=== PATIENT | male | born 1960 | race Caucasian/White ===

== ENCOUNTER 2024-05-22 08:50 | Outpatient (REF) | payer MEDICARE, SELFPAY | END 2024-05-22 08:51 | disposition home or self-care (01) | LOC: HO.HOSX 08:50 | PROVIDERS: Visit Provider Physician Assistant | DX: Z13.89 Encounter for screening for other disorder (principal) ==

== ENCOUNTER 2024-11-28 09:28 | Outpatient (AMB) | payer MEDICARE, SELFPAY ==
--- NOTE | 2024-11-28 07:32 | A.OFFVIS_ITS ---
Vital Signs 11/28/24 09:35 Height 5 ft 11 in Weight 216 lb 0.848 oz BMI 30.1 BP 148/70 H Blood Pressure Location Rt brachial Position Sitting Pulse 77 Pulse Source Pulse Oximeter Pulse Oximetry (%) 96 Oxygen Delivery Method Room Air Intake Visit Reasons: T2DM Intake Note: NEW Patient presents today to establish treatment for Type 2 Diabetes Mellitus: Last Diabetic eye exam was on: DUE Last Podiatry exam was on: Patient does not see a Senior Financial Most recent HbA1c: >14.0% from 8.9% 07/27/2024 UR Ketone Dip: Negative Random Glucose- 476 mg/dL, Today UR Ketone Dip: Negative Tools Programmer Required: No Accompanied by: Self / Same As Patient Allergies tamsulosin Adverse Reaction (Mild, Verified 11/28/24 09:36) Unknown HPI Comments Details: [age] YO male who is seen in consultation for T2DM at the request of PCP. Hemoglobin A1c 11/28/2024 greater than 14 % 07/28/24 8.9%. He was recently treated in the emergency room for extensive oropharyngeal candidiasis. Today in the office he is negative for ketones his glucose is 467. He declines an insulin shot in the office. He declines 911 transport to the hospital. He is with a friend who will drive him to the hospital and he is schedule follow up with me in 1 week. He reports his knees buckled out from underneath him yesterday when he felt weak. Diagnosed approx 2018 Today he states he is not taking any of his medication. l Was initially started on treatment with: metformin had dizziness not certain of what meds he has been on in the past. He stopped all meds and dizziness went away. Current regimen: He is not taking any of his medications with the exception of insulin. Lantus 35 units reports taking daily. Reports low sugars x 1 to 60 in the distant past Family history of T2DM in nephew sibling Denies retinopathy. Has eyes checked yearly, last eye exam few years ago seen by Raul Fernandez and Chetna in the past. Has neuropathy, symptoms: Has sharp pains like needles in the feet. last foot exam today, sees podiatry. Has nephropathy, on jaycee-inhibitor.EGFR 65 07/2024 Has HLD, on statin. Last LDL 137 as measured on 07/2024. Denies CAD, pvd or cva Has prev cholecystectomy Diet: not balanced [facility] Medical History Type 2 diabetes mellitus Surgical History Hx of lumbar discectomy Family History Father No problems noted. Mother No problems noted. Social History Alcohol intake: current Alcohol intake frequency: does not drink Patient Tobacco Use Status: Current everyday Tobacco user Physical Exam Vital Signs: Last Vital Signs Pulse 77 11/28/24 09:35 BP 148/70 H 11/28/24 09:35 Pulse Ox 96 11/28/24 09:35 Oxygen Delivery Method Room Air 11/28/24 09:35 BMI result Body Mass Index 30.1 Absence of Cushingoid features. Absence of acromegalic features. Neck exam reveals nl size thyroid about 15 gms. No thyroid nodules palpable. No carotid bruits present. Lungs CTA. Heart S1 S2, Reg R/R. No M/R/ G. Skin exam reveals absence of vitiligo or acanthosis nigricans. Abdominal exam reveals Soft NT/ND with NA BS. No organomegaly present. Const Other: Absence of Cushingoid features. Absence of acromegalic features. Neck exam reveals nl size thyroid about 15 gms. No thyroid nodules palpable. No carotid bruits present. Lungs CTA. Heart S1 S2, Reg R/R. No M/R G. Skin exam reveals absence of vitiligo or acanthosis nigricans. No edema Visual exam of foot performed. No ulcerations or open lesions. No inter digit maceration or fissuring. No onychomycosis, no callouses. Sensation intact to monofilament exam. Vibratory sensation is normal with 128 Hz tuning fork. Neck Other: . Extrem Other: Visual exam of foot performed. No ulcerations or open lesions. No onchomycosis, no callouses.Pulses 2 + distally Sensation intact to monofilament exam. Vibratory sensation sensed is intact with 128 Hz tuning fork Results AMB Hemoglobin A1c AMB Hemoglobin A1c > 14.0 % Last Edit by JULISSA Mayes on 11/28/24 09 :52 UR Ketone Dip UR Ketone Dip Negative Last Edit by JULISSA Mayes on 11/28/24 09:53 Results Reviewed Results Reviewed: Laboratory Last Values Glucose (Clinic) 476 mg/dL (60-115) H* 11/28/24 09:42 Hgb A1c (Clinic) > 14.0 % (4.0-6.0) H 11/28/24 09:49 Ur Ketones (Stick) Negative 11/28/24 09:49 Assessment & Plan Assessment & Plan (1) Type 2 diabetes mellitus: Code(s): E11.9 - Type 2 diabetes mellitus without complications Category: Medical Plan: 64-year-old type 2 diabetic with stage II nephropathy EGFR 65 with a 2 pack per day smoking history and an A1c 11/28/2024 over 14 %. Noncompliance with medication. He needs to be started on basal bolus insulin but given the marked elevation in his glucose he was advised to go to the emergency room and declined transportation by 911. I advised him it was against medical advice not to go to the emergency room and then he clearly needs multiple daily injections to get his sugars under control. We had a conversation patient regarding the risk of diabetic complications related to uncontrolled sugars. He has agreed to follow up with me in 1 week. The patient had an opportunity to ask questions regarding treatment plan. The patient expressed understanding and agreement with the above treatment plan. The patient is aware they should contact our office by phone for worsening glucose readings or for any low blood sugars which may warrant a change in diabetes medication. Compliance is encouraged with medications and any followup testing/consults which may have been ordered. Orders: Orders AMB Ketone Urine Dipstick Today E11.9 - Type 2 diabetes mellitus without complications AMB Hemoglobin A1c Today E11.9 - Type 2 diabetes mellitus without complications Patient Instructions: The patient was counseled to achieve a target A1C of 7% (154 avg). Fasting blood sugars should be 90-130 in the morning and less than 180 two hours after meals. Reviewed the relationship between poor diabetic control and the development of complications. Take 15 carb carbohydrate grams to treat a low sugar (3-4 glucose tablets, half a glass of juice or 15 carbohydrate grams of soft candy such as gummie snacks). Recheck your sugar in 15 minutes and re-treat again with 15 carbohydrate grams if low or still with symptoms. Do not drive a car or operate machinery if you do not know what your blood sugar is, if it is low or in excess of 300. Check your feet daily looking for any signs of infection, drainage, redness, ulceration and seek medical attention if this occurs. Break in shoes gradually and do not wear open-toed shoes or walk stocking footed or barefooted. Sick day management reviewed. Coding Level of Care Code New Pt Level 4 (84263) Diagnoses Type 2 diabetes mellitus E11.9 Time Spent (min) 30 Comment Time spent reviewing labs/provider notes, face to face, chart doc
[2024-11-28 09:35] VITALS: BP 148/70; PULSE 77; O2SAT 96; BMI 30.1
[2024-11-28 09:48] LABS: Glucose, Whole Blood 476 mg/dL (60-115)
--- OUTSIDE RECORDS SUMMARY | 2024-11-28 10:42 | XMS_ITS | Clinical Summary ---
Author Organization [facility] Address [address] [place] [address] Care Team Providers Care Sql Application Developer Name Role Phone Vasu Diaz MD Primary Care Provider [phone] Surgical History Surgery Date Site/Laterality Comments CHOLECYSTECTOMY PROCEDURE: ME LAPAROSCOPY SURG CHOLECYSTECTOMY Family History Medical History Relation Name Comments Brain cancer Father Relation Name Status Comments Father Mother Alive Social History Tobacco Use Types Packs/Day Years Used Date Smoking Tobacco: Every Day Smokeless Tobacco: Never Sex and Gender Information Value Date Recorded Sex Assigned at Not on file Legal Sex Male 4:01 PM EST Gender Identity Not on file Sexual Orientation Not on file Obstetrics History Plan of Treatment Health Maintenance Due Date Last Done Comments DTaP,Tdap,and Td Vaccines (1 - Tdap) 1977 Pneumococcal Vaccine: 50+ Ye ars (1 of 2 - PCV) 1977 Zoster Vaccines (1 of 2) 2008 Abdominal Aortic Aneurysm (A AA) Screen 08/25/2022 Cholesterol Screening (Lipid Panel) 08/25/2022 Colorectal Cancer Screening: Colonoscopy 08/25/2022 Depression Screening 08/25/2022 Hepatitis C Screening 08/25/2022 Social Influencers of Health Screening 08/25/2022 Falls Risk Assessment 2023 COVID-19 Vaccine ( - 2023-2 5 season) 2024 Influenza Vaccine (#1) 2024 RSV Immunization Patients 60 + Years Old (1 - 1-dose 75+ series) 2033 HIB Vaccines Aged Out No longer eligi ble based on patient's age to complete this topic HPV Vaccines Aged Out No longer eligi ble based on patient's age to complete this topic Hepatitis A Vaccines Aged Out No long er eligible based on patient's age to complete this topic Hepatitis B Vaccines Aged Out No long er eligible based on patient's age to complete this topic IPV Vaccines Aged Out No longer eligi ble based on patient's age to complete this topic MMR Vaccines Aged Out No longer eligi ble based on patient's age to complete this topic Meningococcal ACWY Vaccine Aged Out N o longer eligible based on patient's age to complete this topic Meningococcal B Vacine Aged Out No lo nger eligible based on patient's age to complete this topic RSV Immunization Patients Un michel 20 months Aged Out No longer eligible b ased on patient's age to complete this topic Varicella Vaccines Aged Out No longer eligible based on patient's age to complete this topic Care Teams Sql Application Developer Relationship Specialty Start Date End Date Vasu Diaz MD [address] [place] [address] PCP - General Internal Medicine 09/08/18
== END 2024-11-28 10:06 | disposition home or self-care (01) ==
PROVIDERS: PCP Internal Medicine; Visit Provider Nurse Practitioner Adult Health
DX: E11.9 Type 2 diabetes mellitus without complications (principal)
CPT/HCPCS: 99204

== ENCOUNTER → 2024-11-28 09:28 | Outpatient (BNVA) | payer MEDICARE, SELFPAY | PROVIDERS: PCP Internal Medicine; Visit Provider Nurse Practitioner Adult Health | DX: E11.9 Type 2 diabetes mellitus without complications (principal) | CPT/HCPCS: 81002; 82947; 83036; 99202 ==

== ENCOUNTER 2024-12-05 09:19 | Outpatient (AMB) | payer MEDICARE, SELFPAY ==
--- NOTE | 2024-12-04 16:22 | A.OFFVIS_ITS ---
Vital Signs 12/05/24 09:30 Height 5 ft 11 in Weight 222 lb 10.67 oz BMI 31.1 BP 120/60 Blood Pressure Location Rt brachial Position Sitting Pulse 70 Pulse Source Pulse Oximeter Pulse Oximetry (%) 96 Oxygen Delivery Method Room Air Intake Visit Reasons: T2DM Intake Note: Patient presents today for a follow-up on Type 2 Diabetes Mellitus: Last Diabetic eye exam was on: DUE Last Podiatry exam was on: Patient does not see a Consulting Manager Most recent HbA1c: >14.0%, 11/28/2024 Random Glucose- 317 mg/dL, Today Manufacturer Agent Required: No Accompanied by: Self / Same As Patient Allergies tamsulosin Adverse Reaction (Mild, Verified 12/05/24 09:31) Unknown Medication List - Last Reconciled 12/05/24 by Zhanna Burger NP aspirin 81 mg PO DAILY atorvastatin 10 mg PO BEDTIME blood-glucose sensor (FreeStyle Eladio 3 Sensor device) As directed fluconazole 100 mg PO DAILY insulin glargine (Lantus Solostar U-100 Insulin) 40 units subcut DAILY lisinopril 10 mg PO QAM pen needle, diabetic (BD Ultra-Fine Short Pen Needle) As directed pioglitazone 30 mg PO DAILY HPI Comments Details: [age] YO male who is seen in f/u for T2D. He was seen as an initial consult on 11/28/2024 and referred to emergency room for a glucose of 476 because he refused treatment with an insulin injection. He had stopped all of his medications prior to his clinic visit and had been complaining of dizziness. A1c 11/28/2024 greater than 14 % 07/28/24 8.9%. He was hospitalized for several days and bolus insulin was added to his regime. He was given a sliding scale to follow and has picked up the insulin pens but has not started using bolus insulin. He has been taking Lantus 40 units daily. He was recently treated in the emergency room for extensive oropharyngeal candidiasis. . Diagnosed approx 2017 Was initially started on treatment with: metformin reports that this caused dizziness Current regimen: Lantus 40 units Humalog tid before meals 100-149 10 unit 150-199 13 units 200- 249 16 units 250-299 19 units 300-349 22 units 350-399 25 units call if greater than 400 300-349 Glucose average on freestyle eladio is 308 Reports low sugars x 1 to 60 in the distant past Family history of T2DM in nephew sibling Denies retinopathy. Has eyes checked yearly, last eye exam few years ago seen by [facility] and [facility] in the past. Has neuropathy, symptoms: Has sharp pains like needles in the feet. last foot exam one week ago, sees podiatry. Has nephropathy, on jaycee-inhibitor.E GFR 65 07/2024 Has HLD, on statin. Last LDL 137 as measured on 07/2024. Denies CAD, pvd or cva Has prev cholecystectomy Diet: not balanced has been trying to eat better PFSH Medical History Type 2 diabetes mellitus Surgical History Hx of lumbar discectomy Family History Father No problems noted. Mother No problems noted. Social History Alcohol intake: current Alcohol intake frequency: does not drink Patient Tobacco Use Status: Current everyday Tobacco user Physical Exam Vital Signs: Last Vital Signs Pulse 70 12/05/24 09:30 BP 120/60 12/05/24 09:30 Pulse Ox 96 12/05/24 09:30 Oxygen Delivery Method Room Air 12/05/24 09:30 BMI result Body Mass Index 31.1 Const Other: Absence of Cushingoid features. Absence of acromegalic features. Neck exam reveals nl size thyroid about 15 gms. No thyroid nodules palpable. Heart S1 S2, Reg R/R. No M/R G. Skin exam reveals absence of vitiligo or acanthosis nigricans. No edema Visual exam of foot performed. No ulcerations or open lesions. No inter digit maceration or fissuring. nails thickened, irregular surface, yellowed, slight callouses. Sensation intact to touch Assessment & Plan Assessment & Plan (1) Type 2 diabetes mellitus: Code(s): E11.9 - Type 2 diabetes mellitus without complications Category: Medical Plan: 64-year-old diabetic with poor control and poor compliance. Recently hospitalized at [facility] and started on bolus insulin. He was given a scale to start using pre meal insulin but it has not done so yet. He will start using the scale today and we reviewed the scale and how to use it today. I will see him back in the office in 2 weeks' time to look at his numbers. Get some diabetes education scheduled at that time. The patient had an opportunity to ask questions regarding treatment plan. The patient expressed understanding and agreement with the above treatment plan. The patient is aware they should contact our office by phone for worsening glucose readings or for any low blood sugars which may warrant a change in diabetes medication. Compliance is encouraged with medications and any followup testing/consults which may have been ordered. Medications: New insulin lispro (Humalog KwikPen (U-100) Insulin) 100-149 10 units 150-199 13 units 200-249 16 units 250-299 19 units 300-349 22 units over 350 25 units subcutaneously use as directed; 30 days 57 mL 4RF Patient Instructions: Take 15 carb carbohydrate grams to treat a low sugar (3-4 glucose tablets, half a glass of juice or 15 carbohydrate grams of soft candy such as gummie snacks). Recheck your sugar in 15 minutes and re-treat again with 15 carbohydrate grams if low or still with symptoms. Do not drive a car or operate machinery if you do not know what your blood sugar is, if it is low or in excess of 300. Coding Level of Care Code Est Pt Level 4 (44458) Complex EM visit Add On G2211 Diagnoses Type 2 diabetes mellitus E11.9 Time Spent (min) 30 Comment Time spent reviewing labs/provider notes, face to face, chart doc
[2024-12-05 09:30] VITALS: BP 120/60; PULSE 70; O2SAT 96; BMI 31.1
[2024-12-05 09:38] LABS: Glucose, Whole Blood 317 mg/dL (60-115)
--- OUTSIDE RECORDS SUMMARY | 2024-12-05 10:06 | XMS_ITS | Clinical Summary ---
Author Organization [facility] Address [address] [place] [address] Care Team Providers Care Hoof Trimmer Name Role Phone Vasu Diaz MD Primary Care Provider [phone] Surgical History Surgery Date Site/Laterality Comments CHOLECYSTECTOMY PROCEDURE: DE LAPAROSCOPY SURG CHOLECYSTECTOMY Family History Medical History [...] age to complete this topic Care Teams Hoof Trimmer Relationship Specialty Start Date End Date Vasu Diaz MD [address] [place] [address] PCP - General Internal Medicine 09/08/18
== END 2024-12-05 09:51 | disposition home or self-care (01) ==
LOC: HO.ENCR 09:20
PROVIDERS: PCP Internal Medicine; Visit Provider Nurse Practitioner Adult Health
DX: E11.9 Type 2 diabetes mellitus without complications (principal)
CPT/HCPCS: 99214; G2211

== ENCOUNTER → 2024-12-05 09:19 | Outpatient (BNVA) | payer MEDICARE, SELFPAY | PROVIDERS: PCP Internal Medicine; Visit Provider Nurse Practitioner Adult Health | DX: E11.9 Type 2 diabetes mellitus without complications (principal); Z79.4 Long term (current) use of insulin | CPT/HCPCS: 82947; 99212 ==